=== PATIENT | female | born 1990 | race Caucasian/White ===

== ENCOUNTER 2016-12-07 16:52 | Inpatient (IN) | payer OTHER ==
[~2016-12-07] VITALS: Ht 149.9 cm; Wt 70.0 kg
[2016-12-07 17:00] VITALS: Ht 149.9 cm; Wt 70.0 kg
[2016-12-07 17:01] VITALS: BP 123/75; PULSE 85; RESP 18
--- NOTE | 2016-12-07 17:46 | RADRPT ---
PROCEDURE: US OB. CLINICAL INDICATION: Contractions. Uncertain size and dates. TECHNIQUE: Multiple sonographic images of the uterus were obtained. The images were revi ewed on a PACS workstation. COMPARISON: No prior studies are available for comparison. FINDINGS: There is a single live intrauterine gestation. heart rate is 134 beats per minute. Measurements were made in order to determine age. The results are as follows: BPD = 9.10 cm. HC = 34.04 cm. AC = 35.35 cm. FL = 7.65 cm. Estimated weight is 3628 +/- 544 grams. LMP growth percentile is 51 %. Menstrual age by ultrasound dates is 38 weeks 4 days. The estimated date of delivery is 12/17/2016. Position is cephalic and placenta is anterior grade II. There is no evidence for an abruption or nella centa previa. IMPRESSION: 1. Single live intrauterine gestation of 38 weeks 4 days menstrual age by ultrasound dates. 2. The estimated date of delivery is 12/17/2016. RPTAT: QQ .Levon Mehta MD, Date Time Electronically viewed and signed by .Levon Mehta MD, on 12/07/2016 17:46 .R/
--- NOTE | 2016-12-07 18:26 | TRIAGE ---
OB Triage Datetime Report Generated by CPN: 12/07/2016 18:26 Datetime: 12/07/2016 18:18 Stage of : OB Triage Maternal Assessment Level of Consciousness: Fully Conscious DTR's/Clonus: DTRs 1+ Headache: Denies Breath Sounds, Left: Clear and Equal Breath Sounds, Right: Clear and Equal Nausea/Vomiting: Denies RUQ Epigastric Pain: Denies Monitor Mode: External Quality: Mild Pattern: Normal: <= 5 Contractions in 10 Minutes Resting Tone [place]: Relaxed Heart Rate FHR Baseline Rate: 130 Monitor Mode: External US Variability: Moderate 6-25 bpm Accelerations: 15X15 Decelerations: None Category: Category I Pain Assessment Pain Scale: 0 Pain Presence: None/Denies Pain Type: N/A Pain Goal: 3 Vaginal Exam Membrane Status: Intact Datetime: 12/07/2016 17:52 Maternal Assessment Level of Consciousness: Fully Conscious DTR's/Clonus: DTRs 1+ Headache: Denies Blurred Vision: No Respiratory Effort: Unlabored Breath Sounds, Left: Clear and Equal Breath Sounds, Right: Clear and Equal Nausea/Vomiting: Denies RUQ Epigastric Pain: Denies Facial Edema: None Labor Evaluation Frequency: X1 Monitor Mode: External Duration (sec)2399: 60 Quality: Mild Pattern: Normal: <= 5 Contractions in 10 Minutes Resting Tone [place]: Relaxed Heart Rate FHR Baseline Rate: 130 Monitor Mode: External US Variability: Moderate 6-25 bpm Accelerations: 15X15 Decelerations: None Category: Category I Pain Assessment Pain Scale: 0 Pain Presence: None/Denies Pain Type: N/A Pain Goal: 3 Vaginal Exam Membrane Status: Intact Datetime: 12/07/2016 17:28 EGA: 40.1 Datetime: 12/07/2016 17:05 Stage of : OB Triage Maternal Assessment Level of Consciousness: Fully Conscious DTR's/Clonus: DTRs 1+ Headache: Denies Breath Sounds, Left: Clear and Equal Breath Sounds, Right: Clear and Equal Nausea/Vomiting: Denies RUQ Epigastric Pain: Denies Monitor Mode: External Quality: Mild Pattern: Normal: <= 5 Contractions in 10 Minutes Resting Tone [place]: Relaxed Heart Rate FHR Baseline Rate: 130 Monitor Mode: External US Variability: Moderate 6-25 bpm Accelerations: 15X15 Decelerations: None Category: Category I Pain Assessment Pain Scale: 0 Pain Presence: None/Denies Pain Type: N/A Pain Goal: 3 Vaginal Exam Membrane Status: Intact Datetime: 12/07/2016 17:01 Assessment Type: Triage Maternal Assessment Level of Consciousness: Fully Conscious DTR's/Clonus: DTRs 2+; No Clonus Headache: Denies Blurred Vision: No Respiratory Effort: Unlabored; Regular Rhythm; Equal Expansion Breath Sounds, Left: Clear and Equal Breath Sounds, Right: Clear and Equal Nausea/Vomiting: Denies RUQ Epigastric Pain: Denies Lower Extremities Edema: None Degree: None Upper Extremities Edema: None Degree: None Facial Edema: None Fall Risk Assessment History of Falling: (0) No Secondary Diagnosis: (0) No Ambulatory Aid: (0) Bedrest/Nurse Assist IV Therapy: (0) No Gait: (0) Normal/Bedrest/Immobile Mental Status: (0) Oriented to Own Ability Fall Score: 0 Fall Risk Score Definition: No Risk: No action required Datetime: 12/07/2016 16:42 Time of Arrival: 12/07/2016 16:42 Arrived By: Ambulatory Arrived From: Home Chief Complaint: PT CAME IN C/O DFM Movement: Present Rupture of Membranes: Denies Vaginal Discharge: Denies Recent Sexual Intercouse: Denies Abdominal Trauma: Not Applicable Additional Patient Complaints: NONE Time Provider Notified: 12/07/2016 17:00 Initial Plan: [facility] AND ALMITA E[facility]
--- NOTE | 2016-12-07 18:28 | RADRPT ---
PROCEDURE: US biophysical profile. CLINICAL INDICATION: Decreased motion. Contractions. TECHNIQUE: Multiple sonographic images of the uterus were obtained. The images were revi ewed on a PACS workstation. COMPARISON: No prior studies are available for comparison. FINDINGS: There is a single live intrauterine gestation. heart rate is 137 beats per minute. The position is cephalic. The placenta is anterior grade III with no abruption or previa. The LD is 3.7 cm. (Normal = 5-20 cm.) Breathing Movement: 2 Gross Body Movement: 0 Tone: 0 Qualitative Amniotic Fluid Volume: 0 TOTAL: 2 IMPRESSION: 1. The biophysical score is 2/8. Call report: A call report of the findings was made to Tatum Diallo, the patient's nurse, on 11/18 at 1825 hours. RPTAT: QQ .Levon Mehta MD, MD Date Time Electronically viewed and signed by .Levon Mehta MD, on 12/07/2016 18:27 .R/
--- NOTE | 2016-12-07 18:35 | TRIAGE ---
OB Triage Datetime Report Generated by CPN: 12/07/2016 18:35 Datetime: 12/07/2016 18:35 Assessment Type: Admission Assessment Vaginal Bleeding: None Level of Consciousness: Fully Conscious DTR's/Clonus: DTRs 2+; No Clonus Headache: Denies Blurred Vision: No Respiratory Effort: Unlabored; Regular Rhythm; Equal Expansion Breath Sounds, Left: Clear and Equal Breath Sounds, Right: Clear and Equal Nausea/Vomiting: Denies RUQ Epigastric Pain: Denies Facial Edema: None History of Falling: (0) No Secondary Diagnosis: (0) No Ambulatory Aid: (0) Bedrest/Nurse Assist IV Therapy: (0) No Gait: (0) Normal/Bedrest/Immobile Mental Status: (0) Oriented to Own Ability Datetime: 12/07/2016 18:34 Time of Arrival: 12/07/2016 18:28 EGA: 40.1 Arrived By: Ambulatory Arrived From: Other Unit in Hospital Datetime: 12/07/2016 17:28 EGA: 40.1 Datetime: 12/07/2016 17:01 Fall Score: 0 Fall Risk Score Definition: No Risk: No action required Datetime: 12/07/2016 16:42 Provider Notified: DELSHAD
[2016-12-07] MEDS ORDERED: LACTATED RINGER'S 1,000 ML IV PRN (18:40)
[2016-12-07] MEDS ORDERED: LACTATED RINGER'S 1,000 ML IV ONE (18:40)
[2016-12-07] MEDS ORDERED: OXYTOCIN 30 UNITS/LR 500 ML IV PRN (19:00)
[2016-12-07] MEDS ORDERED: CARBOPROST 250 MCG INJ IM PRN (19:00)
[2016-12-07] MEDS ORDERED: LIDOCAINE 1% (MPF) 30 ML INJ INJ PRN (19:00)
[2016-12-07] MEDS ORDERED: METHYLERGONOVINE 0.2 MG INJ IM PRN (19:00)
[2016-12-07] MEDS ORDERED: MISOPROSTOL 200 MCG TAB PR PRN (19:00)
[2016-12-07] MEDS ORDERED: BUTORPHANOL 2 MG INJ IV PRN (19:00)
[2016-12-07] MEDS ORDERED: IBUPROFEN 600 MG TAB PO PRN (19:00)
[2016-12-07] MEDS ORDERED: OXYTOCIN 30 UNITS/LR 500 ML IV SCH ×2 (19:00)
[2016-12-07] MEDS ORDERED: AMPICILLIN 2 GM/NS (PMX) 100 ML IV ONE (19:00)
[2016-12-07 19:03] LABS: ADD SCAN DIFF NO
[2016-12-07 19:05] LABS: BASOPHILS % 0.3 % (0.0-2.0); EOSINOPHILS # 0.1 10^3/ul (0.0-0.5); EOSINOPHILS % 0.7 % (0.0-7.0); HEMATOCRIT 27.9 % (37.0-47.0); HEMOGLOBIN 8.3 g/dl (12.0-16.0); LYMPHOCYTES % 19.6 % (15.0-51.0); MEAN CORPUSCULAR HEMOGLOBIN 19.9 pg (29.0-33.0); MEAN CORPUSCULAR HGB CONC 29.7 g/dl (32.0-37.0); MEAN CORPUSCULAR VOLUME 66.9 fl (82.0-101.0); MEAN PLATELET VOLUME 10.6 fl (7.4-10.4); MONOCYTE # 0.6 10^3/ul (0.3-0.9); MONOCYTES % 6.1 % (0.0-11.0); NEUTROPHIL # 7.3 10^3/ul (1.6-7.5); NUCLEATED RED BLOOD CELLS% 0.2 /100WBC (0.0-0.0); PLATELET COUNT 335 10^3/UL (140-415); RED BLOOD COUNT 4.17 10^6/ul (4.20-5.40); RED CELL DISTRIBUTION WIDTH 17.7 % (11.5-14.5)
[2016-12-07 19:15] LABS: INR 0.97; PROTIME 12.9 Sec (12.2-14.2)
[2016-12-07 19:16] LABS: PARTIAL THROMBOPLASTIN TIME 28.2 Sec (25.0-35.0)
[2016-12-07] MEDS: LACTATED RINGER'S 1,000 ML IV SCH (19:59)
[2016-12-07] MEDS: MISOPROSTOL 25 MCG CAPSULE PO SCH (21:01)
[2016-12-08] MEDS: AMPICILLIN 1 GM/NS (PMX) 50 ML IV SCH ×8 (00:14→23:41)
--- NOTE | 2016-12-08 01:01 | RADRPT ---
PROCEDURE: US OB biophysical profile. CLINICAL INDICATION: decreased movements TECHNIQUE: Multiple sonographic images of the pelvis were obtained. The images were reviewed on a PACS workstation. COMPARISON: No pertinent prior examinations were submitted for comparison. FINDINGS: There is a single viable intrauterine gestation. Cardiac activity is present with 154 beats per min [place]. There is a vertex presentation. The placenta is anterior, grade 3 in appearance. There is a normal amount of amniotic fluid with an LD = 11.3 cm. Biophysical profile: movement 2/2 tone 2/2. breathing 2/2 LD 2/2 Total 02/24 IMPRESSION: Normal biophysical profile. RPTAT: HIKT . .Gunnar Dover MD, MD Date Time Electronically viewed and signed by .Gunnar Dover MD, on 12/08/2016 01:00 .T/
[2016-12-08] MEDS: MISOPROSTOL 25 MCG CAPSULE PO SCH ×5 (01:12→17:11)
[2016-12-08] MEDS: LACTATED RINGER'S 1,000 ML IV SCH ×5 (06:04→22:49)
--- NOTE | 2016-12-08 21:02 | HP ---
Date/Time of Note Date/Time of Note DATE: 12/08/16 TIME: 20:59 OB - History Hx of Present Chief Complaint: decreased movement Estimated Due Date: December 07, 2016 : 1 Para: 0 Spontaneous : 0 Therapeutic : 0 Care: Good Care Ultrasounds: Normal mid trimester US Obstetrical Complications: None Medical Complications: None Past Family/Social History * Past Medical, Surgical, Family and Obstetric Histories reviewed from chart. GBS Status: Positive OB Admission Exam Vital Signs Vital Signs Vital Signs Date Time Temp Pulse Resp B/P Pulse Ox O2 Delivery O2 Flow Rate FiO2 12/07/16 17:01 98.2 85 18 123/75 Room Air Physical Exam HEENT: WNL Heart: Rhythm Normal Lungs: Clear Abdomen: WNL Extremities: Normal Cervical Dilatation: Fingertip Effacement: 50% Station: -2 Membranes: Intact Heart Rate: 130's Accelerations: Accelerations Present Decelerations: No Decelerations Varibility: Moderate Last 72 hours Lab Results CBC & BMP 12/07/16 18:35 OB Assessment/Plan Reason for admission: other (oligohydramnios) Plan: Induction Induction Method: per Misoprostol Protocol HOWARD MARY MD December 08, 2016 21:02
[2016-12-09] MEDS: AMPICILLIN 1 GM/NS (PMX) 50 ML IV SCH ×6 (03:56→23:48)
[2016-12-09] MEDS: MISOPROSTOL 25 MCG CAPSULE PO SCH ×2 (06:00→10:26)
[2016-12-09] MEDS: LACTATED RINGER'S 1,000 ML IV SCH ×3 (08:16→21:18)
[2016-12-09] MEDS: ONDANSETRON 4 MG INJ IV PRN (15:28)
[2016-12-09] MEDS ORDERED: OXYTOCIN 30 UNITS/LR 500 ML IV SCH (15:30)
[2016-12-10] MEDS: ONDANSETRON 4 MG INJ IV PRN ×3 (00:38→14:16)
[2016-12-10] MEDS ORDERED: FENTAnyl 2MCG/ML-ROPIV 0.2% 100 ML ONE (01:46)
[2016-12-10] MEDS ORDERED: NALOXONE (0.4 MG/ML) INJ IV PRN ×2 (02:00→15:30)
[2016-12-10] MEDS ORDERED: FENTAnyl 2MCG/ML-ROPIV 0.2% 100 ML BAG EPI SCH (02:00)
[2016-12-10] MEDS: AMPICILLIN 1 GM/NS (PMX) 50 ML IV SCH ×4 (04:08→12:33)
[2016-12-10] MEDS: LACTATED RINGER'S 1,000 ML IV SCH ×3 (05:02→19:30)
[2016-12-10] MEDS ORDERED: CEFAZOLIN 2 GM/50 ML (PMX) 50 ML IV SCH (13:00)
[2016-12-10 13:22] LABS: ADD SCAN DIFF NO
[2016-12-10 13:25] LABS: BASOPHILS % 0.2 % (0.0-2.0); HEMATOCRIT 28.3 % (37.0-47.0); HEMOGLOBIN 8.3 g/dl (12.0-16.0); LYMPHOCYTES # 1.4 10^3/ul (0.8-2.9); LYMPHOCYTES % 8.4 % (15.0-51.0); MEAN CORPUSCULAR HEMOGLOBIN 19.7 pg (29.0-33.0); MEAN CORPUSCULAR HGB CONC 29.3 g/dl (32.0-37.0); MEAN CORPUSCULAR VOLUME 67.1 fl (82.0-101.0); MEAN PLATELET VOLUME 10.4 fl (7.4-10.4); MONOCYTE # 1.3 10^3/ul (0.3-0.9); MONOCYTES % 7.4 % (0.0-11.0); NEUTROPHILS % 83.4 % (39.0-77.0); PLATELET COUNT 322 10^3/UL (140-415); RED BLOOD COUNT 4.22 10^6/ul (4.20-5.40); WHITE BLOOD COUNT 16.8 10^3/ul (4.8-10.8)
[2016-12-10 13:52] LABS: INR 0.98
[2016-12-10 13:53] LABS: PARTIAL THROMBOPLASTIN TIME 29.5 Sec (25.0-35.0)
[2016-12-10] MEDS ORDERED: CITRIC ACID/SODIUM CITRATE 15 ML CUP ONE (14:13)
[2016-12-10] MEDS ORDERED: CITRIC ACID/NA CITRATE 30 ML CUP ONE (14:18)
--- NOTE | 2016-12-10 14:25 | QN ---
Documentation Comment Patient has progressed to 8-9 cm dilation and there has been no further progress for more than 5 hours. Patient was counseled about the lack of progress in labor and her options of management. Patient stated she understood and gave informed consent for delivery by primary . HOWARD MARY MD December 10, 2016 14:24
[2016-12-10] MEDS ORDERED: CITRIC ACID/SODIUM CITRATE 15 ML CUP PO ONE (14:30)
[2016-12-10] MEDS ORDERED: NA BICARBONATE 8.4% 50 ML SYG ONE (14:37)
[2016-12-10] MEDS ORDERED: LIDOCAINE 2% (SDV) 5 ML INJ ONE (14:37)
[2016-12-10] MEDS ORDERED: METOCLOPRAMIDE 10 MG INJ ONE (14:47)
[2016-12-10] MEDS ORDERED: PHENYLephrine (100 MCG/ML) 5ML SYG ONE (14:49)
[2016-12-10] MEDS ORDERED: OXYTOCIN 10 UNIT INJ ONE (14:49)
[2016-12-10] MEDS ORDERED: morphine SULFATE/PF (10 MG/10 ML) INJ ONE (14:49)
[2016-12-10] MEDS ORDERED: TRIMETHOBENZAMIDE 100 MG/ML VIAL IM PRN (15:30)
[2016-12-10] MEDS ORDERED: ONDANSETRON 4 MG INJ IV PRN ×2 (15:30)
[2016-12-10] MEDS ORDERED: HYDROmorphONE (0.2 MG/ML) 10ML SYG IV PRN ×3 (15:30)
[2016-12-10] MEDS ORDERED: MEPERIDINE 25 MG INJ IV PRN (15:30)
[2016-12-10] MEDS ORDERED: FENTAnyl 50 MCG/ML VIAL IV PRN ×3 (15:30)
[2016-12-10] MEDS ORDERED: hydrALAzine 20 MG INJ IV PRN (15:30)
[2016-12-10] MEDS ORDERED: MIDAZOLAM 1 MG/ML 2 ML INJ IV PRN (15:30)
[2016-12-10] MEDS ORDERED: morphine 2 MG INJ IV PRN (15:30)
[2016-12-10] MEDS ORDERED: LABETALOL HCL 20MG INJ IV PRN (15:30)
[2016-12-10] MEDS ORDERED: DIPHENHYDRAMINE 50 MG INJ IV PRN ×2 (15:30)
[2016-12-10] MEDS ORDERED: EPHEDrine SULFATE 50 MG/5 ML SYG IV PRN (15:30)
--- NOTE | 2016-12-10 16:00 | OPR ---
DATE OF OPERATION: 12/10/2016 PREOPERATIVE DIAGNOSES: at term with arrest of dilation. POSTOPERATIVE DIAGNOSES: at term with arrest of dilation. OPERATION PERFORMED: Primary low transverse section. SURGEON: Howard Smith MD ROUTING EQUIPMENT TENDER: Ade Aguilar MD ANESTHESIA: Epidural. ANESTHESIOLOGIST: Renny Manning MD PROCEDURE: The patient was taken to the operating room and placed on the operating table in supine position. After adequate epidural anesthesia was given, the area was prepared and draped in the usu al sterile fashion. Epidural anesthesia was tested and was satisfactory. Using a scalpel, Pfannens tiel incision was made about 2 fingerbreadths above the symphysis pubis. The incision was carried d own to the fascia. The fascia was incised and extended bilaterally with Mitchell scissors. Two Kochers were used to separate the fascia from the muscle. The muscle was dissected down to peritoneum. Th e peritoneum was bluntly entered. Using a scalpel, a small transverse incision was made in the lowe r segment of the uterus. Upon entering the uterine cavity, bandage scissors were inserted to extend the incision bilaterally, curved up. Baby was delivered from cephalic presentation. After suction ing clear of amniotic fluid, the baby was handed off to the admin secretary in attendance. Apgars wer e 8 and 9. The placenta was delivered without difficulty. The uterus was closed with #1 Monocryl c ontinuous locked. After assuring hemostasis, both ovaries and tubes were inspected, all looked norm al. Uterine cavity was irrigated with warm saline. The peritoneum was closed with 2-0 Vicryl continuous. The fascia was closed with #1 Vicryl continuo us in 2 segments. Subcutaneous tissue was reapproximated with 2-0 plain. The skin was closed with 3-0 Monocryl subcuticular. ESTIMATED BLOOD LOSS: 600 mL. COMPLICATIONS: None. COUNTS: All counts were correct. Dictated By: HOWARD SMITH MD GD/NTS Conf#: [id number] DID#: [id number]
[2016-12-10 17:23] LABS: ADD SCAN DIFF NO
[2016-12-10 17:25] LABS: BASOPHILS % 0.2 % (0.0-2.0); HEMATOCRIT 27.8 % (37.0-47.0); HEMOGLOBIN 8.6 g/dl (12.0-16.0); LYMPHOCYTES # 1.1 10^3/ul (0.8-2.9); LYMPHOCYTES % 6.4 % (15.0-51.0); MEAN CORPUSCULAR HEMOGLOBIN 21.6 pg (29.0-33.0); MEAN CORPUSCULAR HGB CONC 30.9 g/dl (32.0-37.0); MEAN CORPUSCULAR VOLUME 69.7 fl (82.0-101.0); MONOCYTE # 0.9 10^3/ul (0.3-0.9); MONOCYTES % 5.4 % (0.0-11.0); NEUTROPHIL # 14.4 10^3/ul (1.6-7.5); NEUTROPHILS % 87.1 % (39.0-77.0); PLATELET COUNT 285 10^3/UL (140-415); RED BLOOD COUNT 3.99 10^6/ul (4.20-5.40); RED CELL DISTRIBUTION WIDTH 21.2 % (11.5-14.5); WHITE BLOOD COUNT 16.5 10^3/ul (4.8-10.8)
[2016-12-10] MEDS: KETOROLAC 30 MG INJ IV PRN (17:38)
[2016-12-10] MEDS ORDERED: CARBOPROST 250 MCG INJ IM PRN (18:30)
[2016-12-10] MEDS ORDERED: OXYCODONE/ACETAMINOPHEN (5/325) TAB PO PRN ×2 (18:30)
[2016-12-10] MEDS ORDERED: OXYTOCIN 30 UNITS/LR 500 ML IV PRN (18:30)
[2016-12-10] MEDS ORDERED: METHYLERGONOVINE 0.2 MG INJ IM PRN (18:30)
[2016-12-10] MEDS ORDERED: MISOPROSTOL 200 MCG TAB PR PRN (18:30)
[2016-12-10 18:40] VITALS: BP 123/63; PULSE 77; RESP 20
[2016-12-10 19:45] VITALS: BP 120/70; PULSE 73; RESP 18
[2016-12-10] MEDS: SENNA/DOCUSATE NA (8.6MG/50MG) TAB PO SCH (21:00)
[2016-12-10] MEDS: morphine 2 MG INJ IV PRN (21:29)
[2016-12-10] MEDS: OXYTOCIN 30 UNITS/LR 500 ML IV SCH (21:42)
[2016-12-10] MEDS: IBUPROFEN 800 MG TAB PO SCH (22:00)
[2016-12-11] MEDS: KETOROLAC 30 MG INJ IV PRN ×3 (00:27→13:31)
[2016-12-11] MEDS: PIPER-TAZO 3.375 GM IV (PMX) 100 ML IVPB SCH ×5 (00:33→23:57)
[2016-12-11] MEDS ORDERED: ACETAMINOPHEN 325 MG TAB PO PRN (01:30)
[2016-12-11] MEDS: OXYTOCIN 30 UNITS/LR 500 ML IV SCH (02:16)
[2016-12-11] MEDS: LACTATED RINGER'S 1,000 ML IV SCH ×3 (02:17→21:16)
[2016-12-11] MEDS: morphine 2 MG INJ IV PRN ×2 (04:42→11:32)
[2016-12-11] MEDS: LANOLIN 7 GM TUBE TOP PRN (04:43)
[2016-12-11 05:33] VITALS: BP 98/55; PULSE 76; RESP 18
[2016-12-11] MEDS: IBUPROFEN 800 MG TAB PO SCH ×3 (06:00→21:16)
[2016-12-11] MEDS: SENNA/DOCUSATE NA (8.6MG/50MG) TAB PO SCH ×2 (07:51→21:16)
[2016-12-11 08:09] VITALS: BP 110/67; PULSE 96; RESP 14
[2016-12-11 08:09] LABS: ADD SCAN DIFF NO
[2016-12-11 08:14] LABS: BASOPHILS % 0.3 % (0.0-2.0); EOSINOPHILS % 0.2 % (0.0-7.0); HEMOGLOBIN 7.4 g/dl (12.0-16.0); LYMPHOCYTES # 1.9 10^3/ul (0.8-2.9); LYMPHOCYTES % 12.4 % (15.0-51.0); MEAN CORPUSCULAR HEMOGLOBIN 20.8 pg (29.0-33.0); MEAN CORPUSCULAR HGB CONC 29.6 g/dl (32.0-37.0); MEAN CORPUSCULAR VOLUME 70.2 fl (82.0-101.0); MEAN PLATELET VOLUME 10.4 fl (7.4-10.4); MONOCYTES % 6.4 % (0.0-11.0); NEUTROPHIL # 12.1 10^3/ul (1.6-7.5); NEUTROPHILS % 80.2 % (39.0-77.0); PLATELET COUNT 255 10^3/UL (140-415); RED BLOOD COUNT 3.56 10^6/ul (4.20-5.40); RED CELL DISTRIBUTION WIDTH 21.4 % (11.5-14.5); WHITE BLOOD COUNT 15.1 10^3/ul (4.8-10.8)
[2016-12-11 11:40] VITALS: BP 115/75; RESP 16
[2016-12-11 16:38] VITALS: BP 100/64; PULSE 89; RESP 14
--- NOTE | 2016-12-11 18:21 | QN ---
Documentation Comment Patient had T 101 last night. Afebrile now VSS Patient has no complaint. Abdomen soft ND POD #1 Stable Continue IV Zosyn. HOWARD MARY MD December 11, 2016 18:21
[2016-12-11 19:35] VITALS: BP 112/73; PULSE 98; RESP 18
[2016-12-11] MEDS: FERROUS SULFATE (EC) 325 MG TAB PO SCH (21:16)
[2016-12-12] MEDS: LANOLIN 7 GM TUBE TOP PRN (00:01)
[2016-12-12] MEDS: LACTATED RINGER'S 1,000 ML IV SCH ×3 (02:17→18:17)
[2016-12-12 03:30] VITALS: BP 105/59; PULSE 71; RESP 19
[2016-12-12] MEDS: IBUPROFEN 800 MG TAB PO SCH ×3 (05:41→21:45)
[2016-12-12] MEDS: PIPER-TAZO 3.375 GM IV (PMX) 100 ML IVPB SCH ×3 (05:41→17:36)
[2016-12-12 07:45] VITALS: BP 113/69; RESP 17
[2016-12-12] MEDS: FERROUS SULFATE (EC) 325 MG TAB PO SCH ×3 (08:07→21:44)
[2016-12-12] MEDS: SENNA/DOCUSATE NA (8.6MG/50MG) TAB PO SCH ×2 (08:07→21:45)
[2016-12-12 16:00] VITALS: BP 107/62; PULSE 71; RESP 17
[2016-12-12 20:20] VITALS: BP 99/69; PULSE 81; RESP 18
--- NOTE | 2016-12-12 21:09 | QN ---
Documentation Comment No complaint Afebrile VSS Abdomen soft POD #2 Stable Continue with present care. HOWARD MARY MD December 12, 2016 21:09
[2016-12-13] VITALS: BP 102/65; PULSE 78; RESP 18
[2016-12-13] MEDS: PIPER-TAZO 3.375 GM IV (PMX) 100 ML IVPB SCH ×3 (00:05→11:56)
[2016-12-13] MEDS: LACTATED RINGER'S 1,000 ML IV SCH ×2 (02:17→09:17)
[2016-12-13] MEDS: IBUPROFEN 800 MG TAB PO SCH ×2 (05:38→14:31)
[2016-12-13 07:29] LABS: ADD SCAN DIFF NO
[2016-12-13 07:34] LABS: ABNORMAL IP MESSAGE 1; BASOPHILS % 0.3 % (0.0-2.0); EOSINOPHILS # 0.2 10^3/ul (0.0-0.5); EOSINOPHILS % 1.9 % (0.0-7.0); LYMPHOCYTES % 22.8 % (15.0-51.0); MEAN CORPUSCULAR HEMOGLOBIN 21.2 pg (29.0-33.0); MEAN CORPUSCULAR VOLUME 70.8 fl (82.0-101.0); MEAN PLATELET VOLUME 9.8 fl (7.4-10.4); MONOCYTE # 0.4 10^3/ul (0.3-0.9); MONOCYTES % 4.9 % (0.0-11.0); NEUTROPHIL # 6.2 10^3/ul (1.6-7.5); NEUTROPHILS % 69.7 % (39.0-77.0); PLATELET COUNT 241 10^3/UL (140-415); RED BLOOD COUNT 3.25 10^6/ul (4.20-5.40); RED CELL DISTRIBUTION WIDTH 21.3 % (11.5-14.5); WHITE BLOOD COUNT 8.9 10^3/ul (4.8-10.8)
[2016-12-13 07:41] LABS: HEMOGLOBIN 6.9 g/dl (12.0-16.0)
[2016-12-13 07:50] VITALS: BP 131/69; PULSE 55; RESP 19
[2016-12-13] MEDS ORDERED: DIPHTH/TET/ACEL PERTUSS (ADULT) 0.5 ML VIAL IM* ONE (09:00)
[2016-12-13] MEDS: SENNA/DOCUSATE NA (8.6MG/50MG) TAB PO SCH (09:17)
[2016-12-13] MEDS: FERROUS SULFATE (EC) 325 MG TAB PO SCH ×2 (09:17→13:27)
--- NOTE | 2016-12-13 12:55 | PD.PPDC ---
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
--- NOTE | 2016-12-13 12:58 | DS ---
Date/Time of Note Date/Time of Note DATE: 12/13/16 TIME: 12:56 Obstetrical Discharge Record Final Diagnosis Final Diagnosis: Term delivered Section Section: Primary Primary Indication Arrest of dilitation Complications Other (Oligohydramnios) Induction: Yes Condition on Discharge Physical Assessment Last Vitals: T=98.0 BP 131/69 Voiding: Yes Bowel Movement: No Breast: Filling Fundus: Firm Abdomen and Incision: Incision clean, dry and intact with steri-strips present. No evidence of infection. Calf Tenderness: No Patient Condition: Good NORY HUI MD December 13, 2016 12:58
== END 2016-12-13 16:30 | disposition home or self-care (01) | DRG 765 ==
LOC: OBT 16:52 → L-D 16:52 → OBT 18:20 → L-D 18:20 → PP1 12-10 18:34
PROVIDERS: ADMIT Obstetrics & Gynecology; ATTEND Obstetrics & Gynecology
PROC: 10D00Z1 Extraction of Products of Conception, Low, Open Approach (ICD-10-PCS; principal; 2016-12-10 15:45)
DX: O36.8130 Decreased fetal movements, third trimester, not applicable or unspecified (principal); O41.03X0 Oligohydramnios, third trimester, not applicable or unspecified; O62.0 Primary inadequate contractions; O99.02 Anemia complicating childbirth; D64.9 Anemia, unspecified; Z3A.40 40 weeks gestation of pregnancy; Z37.0 Single live birth
CPT/HCPCS: 36430; 62319; 76815; 76818; 85025; 85610; 85730; 86592; 86703; 86850; 86900; 86901; 86920; 87040; 87086; 87340; 90715; 99464; G0463; J0290; J0690; J1885; J2270; J2274; J2370; J2405; J2543; J2590; J2765; J3010; J7120; P9016